=== PATIENT | female | born 1995 | race Caucasian/White ===

== ENCOUNTER 2018-01-13 19:11 | Emergency (ER) | payer BC ==
[~2018-01-13] VITALS: Ht 185.4 cm; Wt 106.5 kg
[2018-01-13] MEDS ORDERED: ROXICODONE5 MG PO (21:02)
[2018-01-13] MEDS ORDERED: VALIUM10 MG PO (21:02)
[2018-01-13 21:29] VITALS: BP 122/88
== END 2018-01-13 21:31 | disposition home or self-care (01) ==
LOC: EME 19:11
DX: M54.9 Dorsalgia, unspecified (principal); F17.200 Nicotine dependence, unspecified, uncomplicated; Z85.850 Personal history of malignant neoplasm of thyroid; F20.9 Schizophrenia, unspecified
CPT/HCPCS: 99281; 99284; J1100; J3010

== ENCOUNTER 2018-01-21 12:47 | Emergency (ER) | payer OTHER, BC ==
[~2018-01-21] VITALS: Ht 185.4 cm; Wt 109.9 kg
[~2018-01-21 12:47] MED LIST: ROXICODONE5 MG PO; VALIUM10 MG PO
[2018-01-21 14:26] LABS: APPEARANCE CLEAR ((CLEAR)); BILIRUBIN NEGATIVE; BLOOD NEGATIVE; COLOR STRAW ((YELLOW)); GLUCOSE (STRIP) NEGATIVE; KETONES NEGATIVE; LEUKOCYTES NEGATIVE; NITRITE NEGATIVE; PROTEIN (STRIP) NEGATIVE; SPECIFIC GRAVITY 1.005 (1.000-1.030); UROBILINOGEN 0.2 MG/DL (0.2-1.0)
[2018-01-21] MEDS ORDERED: NEURONTIN100 MG PO (15:02)
[2018-01-21] MEDS ORDERED: LIDODERM 5% P1 PATCH TD (15:02)
[2018-01-21] MEDS ORDERED: PERCOCET 5/31 TABLET PO (15:02)
[2018-01-21 15:27] VITALS: BP 126/89
== END 2018-01-21 15:29 | disposition home or self-care (01) ==
LOC: EME 12:47
PROVIDERS: Nurse Practitioner Family
DX: M54.5 Low back pain (principal); F17.200 Nicotine dependence, unspecified, uncomplicated; Z85.850 Personal history of malignant neoplasm of thyroid; Z88.8 Allergy status to other drugs, medicaments and biological substances; Z91.040 Latex allergy status
CPT/HCPCS: 81003; 81025; 99281; 99284

== ENCOUNTER 2018-02-01 21:19 | Emergency (ER) | payer OTHER, BC ==
[~2018-02-01] VITALS: Ht 185.4 cm; Wt 112.6 kg
[~2018-02-01 21:19] MED LIST changes: +LIDODERM 5% P1 PATCH TD; +NEURONTIN100 MG PO; +PERCOCET 5/31 TABLET PO
[2018-02-01] MEDS ORDERED: ZOFRAN ODT4 MG PO (23:32)
[2018-02-01] MEDS ORDERED: FIORICET 50-301 EAC1 PO (23:32)
[2018-02-01 23:47] VITALS: BP 152/107
== END 2018-02-01 23:48 | disposition home or self-care (01) ==
LOC: EME 21:19
DX: R51 Headache (principal); E28.2 Polycystic ovarian syndrome; Z85.850 Personal history of malignant neoplasm of thyroid; G89.29 Other chronic pain; M54.9 Dorsalgia, unspecified; Z88.8 Allergy status to other drugs, medicaments and biological substances; Z91.040 Latex allergy status; F17.200 Nicotine dependence, unspecified, uncomplicated
CPT/HCPCS: 70450; 99281; 99285; J1200; J1885; J2270; J2765; J7030

== ENCOUNTER 2018-03-08 14:10 | Emergency (ER) | payer OTHER, BC ==
[~2018-03-08] VITALS: Ht 185.4 cm; Wt 112.9 kg
[~2018-03-08 14:10] MED LIST changes: +FIORICET 50-301 EAC1 PO; +ZOFRAN ODT4 MG PO
[2018-03-08] MEDS ORDERED: TYLENOL WITH C1 EACH PO (15:34)
[2018-03-08] MEDS ORDERED: PEN-VEE K,VEET500 MG PO (15:34)
[2018-03-08 15:43] VITALS: BP 141/108
== END 2018-03-08 15:44 | disposition home or self-care (01) ==
LOC: EME 14:10
PROC: 3E0T3BZ Introduction of Anesthetic Agent into Peripheral Nerves and Plexi, Percutaneous Approach (ICD-10-PCS; principal; 2018-03-08)
DX: K08.89 Other specified disorders of teeth and supporting structures (principal); E28.2 Polycystic ovarian syndrome; F17.200 Nicotine dependence, unspecified, uncomplicated; Z85.850 Personal history of malignant neoplasm of thyroid; Z98.890 Other specified postprocedural states
CPT/HCPCS: 99281; 99283; S0020

== ENCOUNTER 2018-05-07 20:00 | Emergency (ER) | payer OTHER, BC ==
[~2018-05-07] VITALS: Ht 185.4 cm; Wt 111.9 kg
[~2018-05-07 20:00] MED LIST changes: +PEN-VEE K,VEET500 MG PO; +TYLENOL WITH C1 EACH PO
[2018-05-07 21:33] VITALS: BP 123/90
[2018-05-07] MEDS ORDERED: VALIUM5 MG PO (22:11)
[2018-05-07] MEDS ORDERED: ULTRACET1 TABLET PO (22:11)
[2018-05-07] MEDS ORDERED: NAPROSYN500 MG PO (22:11)
== END 2018-05-07 22:31 | disposition home or self-care (01) ==
LOC: EME 20:00
DX: M54.16 Radiculopathy, lumbar region (principal); M54.5 Low back pain; G89.29 Other chronic pain; S70.01XA Contusion of right hip, initial encounter; W07.XXXA Fall from chair, initial encounter; E03.9 Hypothyroidism, unspecified; F17.200 Nicotine dependence, unspecified, uncomplicated; Z90.49 Acquired absence of other specified parts of digestive tract; Z88.8 Allergy status to other drugs, medicaments and biological substances; Z91.040 Latex allergy status
CPT/HCPCS: 72100; 73502; 99281; 99284; J1200; J3010

== ENCOUNTER 2018-05-22 21:38 | Emergency (ER) | payer OTHER, BC ==
[~2018-05-22] VITALS: Ht 185.4 cm; Wt 110.8 kg
[~2018-05-22 21:38] MED LIST changes: +NAPROSYN500 MG PO; +ULTRACET1 TABLET PO; +VALIUM5 MG PO
[2018-05-22] MEDS ORDERED: NORCO 5/3251 TABLET PO (22:49)
[2018-05-22] MEDS ORDERED: AMOXICILLIN500 MG PO (22:49)
[2018-05-22 23:18] VITALS: BP 121/97
== END 2018-05-22 23:19 | disposition home or self-care (01) ==
LOC: EME 21:38
DX: S02.5XXA Fracture of tooth (traumatic), initial encounter for closed fracture (principal); X58.XXXA Exposure to other specified factors, initial encounter; F17.200 Nicotine dependence, unspecified, uncomplicated
CPT/HCPCS: 99281; 99283

== ENCOUNTER 2018-07-03 13:42 | Emergency (ER) | payer OTHER, BC ==
[~2018-07-03] VITALS: Ht 185.4 cm; Wt 110.9 kg
[~2018-07-03 13:42] MED LIST changes: +AMOXICILLIN500 MG PO; +NORCO 5/3251 TABLET PO
[2018-07-03 15:30] VITALS: BP 160/89
== END 2018-07-03 15:30 | disposition home or self-care (01) ==
LOC: EME 13:42
DX: R51 Headache (principal); M54.2 Cervicalgia; H92.09 Otalgia, unspecified ear; F17.200 Nicotine dependence, unspecified, uncomplicated
CPT/HCPCS: 99281; 99284